=== PATIENT | male | born 1995 | race African-American/Black ===

== ENCOUNTER 2017-12-19 11:31 | Emergency (ER) | payer OTHER ==
[~2017-12-19] VITALS: Ht 188 cm; Wt 75.0 kg
[2017-12-19 11:39] VITALS: BP 131/81; Ht 188 cm; Wt 75.0 kg
[2017-12-19] MEDS ORDERED: BACTRIM 400-801 TAB PO (12:54)
[2017-12-19] MEDS ORDERED: VOLTAREN75 MG PO (12:54)
== END 2017-12-19 13:15 | disposition home or self-care (01) ==
LOC: D.ER 11:31
DX: S51.811A Laceration without foreign body of right forearm, initial encounter (principal); W26.9XXA Contact with unspecified sharp object(s), initial encounter; Y93.89 Activity, other specified; Y92.019 Unspecified place in single-family (private) house as the place of occurrence of the external cause; F17.200 Nicotine dependence, unspecified, uncomplicated

== ENCOUNTER 2017-12-31 13:20 | Emergency (ER) | payer SELFPAY ==
[~2017-12-31] VITALS: Ht 188 cm; Wt 76.4 kg
[~2017-12-31 13:20] MED LIST: BACTRIM 400-801 TAB PO; VOLTAREN75 MG PO
[2017-12-31 13:40] VITALS: BP 120/54; Ht 188 cm; Wt 76.4 kg
== END 2017-12-31 14:08 | disposition home or self-care (01) ==
LOC: D.ER 13:20
DX: S51.811D Laceration without foreign body of right forearm, subsequent encounter (principal); X58.XXXD Exposure to other specified factors, subsequent encounter; Z48.02 Encounter for removal of sutures; F17.200 Nicotine dependence, unspecified, uncomplicated

== ENCOUNTER 2020-06-21 08:03 | Emergency (ER) | payer MEDICAID ==
[~2020-06-21] VITALS: Ht 188 cm; Wt 73.6 kg
[2020-06-21 08:05] VITALS: BP 133/79; Ht 188 cm; Wt 73.6 kg
[2020-06-21 08:32] LABS: BASOPHILS 0.1 % (0-2); EOSINOPHILS 0.5 % (0-7); HEMATOCRIT 46.1 % (42.0-54.0); HEMOGLOBIN 16.4 g/dL (13.5-17.5); IMMATURE GRANULOCYTES 0.4 % (0-5); LYMPHOCYTES 11.5 % (15-50); MCH 31.9 pg (26.0-34.0); MCHC 35.6 g/dL (31.0-37.0); MCV 89.7 fL (80.0-100.0); MEAN PLATELET VOLUME 9.6 fL (7.4-10.4); MONOCYTES 11.4 % (2-11); NEUTROPHIL ABS# 13.89 10x3/uL (1.78-5.38); NEUTROPHILS 76.1 % (40-80); PLATELET COUNT 191 10x3/uL (130-400); RBC 5.14 10x6/uL (4.20-6.10); WBC 18.3 10x3/uL (4.8-10.8)
[2020-06-21 08:51] LABS: CALC OSMOLALITY 278 mosm/kg (275-300); CALCIUM 9.2 mg/dL (8.5-10.1); CARBON DIOXIDE 27.4 mmol/L (21.0-32.0); CHLORIDE - SERUM 104 mmol/L (98-107); CREATININE - SERUM 0.9 mg/dL (0.6-1.3); GLUCOSE 108 mg/dL (74-106); SODIUM 140 mmol/L (136-145); UREA NITROGEN 9 mg/dL (7-18); eGFR NON AFRICAN AMERICAN > 90 mL/min (90-120)
[2020-06-21 08:57] LABS: ALBUMIN 4.1 g/dL (3.4-5.0); ALKALINE PHOSPHATASE 70 U/L (30-120); ALT (SGPT) 15 U/L (10-68); BILIRUBIN - TOTAL 0.79 mg/dL (0.2-1.3); PROTEIN - SERUM 7.6 g/dL (6.4-8.2)
[2020-06-21] MEDS ORDERED: AUGMENTIN 875-11 TAB PO (09:01)
== END 2020-06-21 09:02 | disposition home or self-care (01) ==
LOC: D.ER 08:03
PROVIDERS: Family Medicine
DX: J02.9 Acute pharyngitis, unspecified (principal); R13.10 Dysphagia, unspecified; R25.2 Cramp and spasm; J45.909 Unspecified asthma, uncomplicated; Z53.29 Procedure and treatment not carried out because of patient's decision for other reasons